=== PATIENT | female | born 1995 ===

== ENCOUNTER 2017-07-12 15:42 | Emergency (ER) | payer SELFPAY ==
[2017-07-12 15:47] VITALS: BP 116/60
--- NOTE | 2017-07-12 18:20 | Emergency Department Report ---
ED Fever HPI - General Chief Complaint: Fever Stated Complaint: FLU LIKE SYMPTOMS Time Seen by Provider: 07/12/17 17:39 - History of Present Illness Initial Comments: The patient is a 21-year-old [place]ag[place] female is presenting with congestion and fever body aches and several days of nausea vomiting. Patient has no dizziness upon standing. Patient also denies productive cough and diarrhea chest pain or abdominal pain this time. Patient has been febrile and feels as though she has to flu ED Review of Systems ROS: Stated complaint: FLU LIKE SYMPTOMS Other details as noted in HPI Comment: All other systems reviewed and negative ED Past Medical Hx - Past Medical History Previous Medical History?: No - Surgical History Past Surgical History?: Yes Additional Surgical History: C/S, wisdom teeth - Social History Smoking Status: Current Every Day Smoker Substance Use Type: None, Alcohol - Medications Home Medications: Home Medications Medication Instructions Recorded Confirmed Last Taken Type HYDROcodone/APAP 5-325 [[place] 1 each PO Q6HR PRN #12 tablet 07/12/17 Unknown Rx 5/325] Ondansetron [Zofran Odt] 4 mg PO Q8HR #10 tab.rapdis 07/12/17 Unknown Rx predniSONE [Deltasone] 20 mg PO QDAY #5 tab 07/12/17 Unknown Rx ED Physical Exam - General Limitations: No Limitations General appearance: alert, in no apparent distress - Head Head exam: Present: atraumatic, normocephalic - Eye Eye exam: Present: normal appearance - ENT ENT exam: Present: mucous membranes moist - Neck Neck exam: Present: normal inspection - Respiratory Respiratory exam: Present: normal lung sounds bilaterally. Absent: respiratory distress - Cardiovascular Cardiovascular Exam: Present: regular rate, normal rhythm. Absent: systolic murmur, diastolic murmur, rubs, gallop - GI/Abdominal GI/Abdominal exam: Present: soft, normal bowel sounds - Extremities Exam Extremities exam: Present: normal inspection - Back Exam Back exam: Present: normal inspection - Neurological Exam Neurological exam: Present: alert, oriented X3 - Psychiatric Psychiatric exam: Present: normal affect, normal mood - Skin Skin exam: Present: warm, dry, intact, normal color. Absent: rash ED Course Vital Signs 07/12/17 15:45 Temperature 100.5 F H Pulse Rate 110 H Respiratory 18 Rate Blood Pressure 116/60 O2 Sat by Pulse 97 Oximetry Critical care attestation.: If time is entered above; I have spent that time in minutes in the direct care of this critically ill patient, excluding procedure time. ED Disposition Clinical Impression: Flu-like symptoms Disposition: TO HOME OR SELFCARE Is pt being admited?: No Does the pt Need Aspirin: No Condition: Stable Instructions: Influenza (ED) Prescriptions: HYDROcodone/APAP 5-325 [[place] 5/325] 1 each PO Q6HR PRN #12 tablet PRN Reason: Pain Ondansetron [Zofran Odt] 4 mg PO Q8HR #10 tab.rapdis predniSONE [Deltasone] 20 mg PO QDAY #5 tab
== END 2017-07-12 18:27 | disposition home or self-care (01) ==
LOC: ED 15:42
DX: M79.1 Myalgia (principal); R09.81 Nasal congestion; R50.9 Fever, unspecified; R11.2 Nausea with vomiting, unspecified; F17.200 Nicotine dependence, unspecified, uncomplicated; Z88.2 Allergy status to sulfonamides
CPT/HCPCS: 99282

== ENCOUNTER 2021-05-27 20:25 | Emergency (ER) | payer OTHER ==
[2021-05-27 20:29] VITALS: BP 110/77
[2021-05-27] MEDS ORDERED: ONDANSETRON 4 MG ODT TAB PO ONE (21:50)
[2021-05-27] MEDS ORDERED: ACETAMINOPHEN 500 MG TAB PO ONE (21:50)
[2021-05-27] MEDS ORDERED: IBUPROFEN 600 MG TAB PO ONE (21:50)
[2021-05-27 22:51] LABS: Bacteria,Urine 1+ /HPF (Negative); Bilirubin,Urine NEG (Negative); Blood,Urine SM (Negative); Color,Urine Yellow (Yellow); Mucus,Urine 2+ /HPF
[2021-05-27 22:56] LABS: HCG Qualitative,Urine Negative (Negative)
--- NOTE | 2021-05-27 23:16 | Emergency Department Report ---
- General Chief Complaint: Fever Stated Complaint: BODYACHES AND FEVER Source: patient Mode of arrival: Ambulatory Limitations: No Limitations - History of Present Illness Initial Comments: Patient is a 25-year-old female with no past medical history presented to the ED with complaint of acute onset persistent diffuse body aches and pains, nasal and sinus congestion, sore throat, persistent headache and subjective fever and chills and lack of appetite for the last 2 days, worse in the last 12 hours. Patient states that she has been taking [id number] medications with no relief. Patient denies dizziness, syncope, nausea and vomiting, diarrhea, chest pain, shortness of breath, abdominal pain, dysuria, urinary frequency and urgency or vaginal discharge and low back pain. MD Complaint: fever, cough, sore throat, rhinorrhea, nasal congestion, sinus pain, other (diffuse body aches and pains) -: Sudden, days(s) (2) Severity: severe Severity scale (0 -10): 8 Quality: sharp, aching Consistency: constant Improves With: nothing Worsens With: nothing Context: sick contacts Associated Symptoms: fever, chills, myalgias, headache, rhinorrhea, nasal congestion, sore throat, cough. denies: diaphoresis, stiff neck, chest pain, abdominal pain, nausea, vomiting, diarrhea, dysuria, rash, confusion, right sweats, weight loss, epistaxis, hoarseness, ear pain Treatments Prior to Arrival: "cold medicine" - Related Data Previous Rx's Medication Instructions Recorded Last Taken Type HYDROcodone/APAP 5-325 [[place] 1 each PO Q6HR PRN #12 tablet 07/12/17 Unknown Rx 5/325] Ondansetron [Zofran Odt] 4 mg PO Q8HR #10 tab.rapdis 07/12/17 Unknown Rx predniSONE [Deltasone] 20 mg PO QDAY #5 tab 07/12/17 Unknown Rx Acetaminophen [Tylenol] 500 mg PO Q6HR PRN #30 tablet 05/27/21 Unknown Rx Azithromycin [Zithromax Z-NASRIN] 250 mg PO DAILY #6 tablet 05/27/21 Unknown Rx Benzonatate [Tessalon Perles] 100 mg PO Q8HR #30 capsule 05/27/21 Unknown Rx Cetirizine HCl [Zyrtec 10mg tab] 10 mg PO DAILY #30 tablet 05/27/21 Unknown Rx Ibuprofen [Motrin] 600 mg PO Q8H PRN #30 tablet 05/27/21 Unknown Rx Allergies Allergy/AdvReac Type Severity Reaction Status Date / Time sulfamethoxazole Allergy Rash Verified 07/12/17 15:45 [From Bactrim] trimethoprim [From Bactrim] Allergy Rash Verified 07/12/17 15:45 ED Review of Systems ROS: Stated complaint: BODYACHES AND FEVER Other details as noted in HPI Constitutional: chills, fever, malaise Eyes: denies: eye pain, eye discharge, vision change ENT: throat pain, congestion, other (Nasal and sinus pressure). denies: ear pain Respiratory: cough. denies: shortness of breath, wheezing Cardiovascular: denies: chest pain, palpitations Endocrine: no symptoms reported Gastrointestinal: denies: abdominal pain, nausea, vomiting, diarrhea Genitourinary: denies: urgency, dysuria, discharge Musculoskeletal: arthralgia, myalgia. denies: back pain, joint swelling Skin: denies: rash, lesions Neurological: headache. denies: weakness, paresthesias Psychiatric: denies: anxiety, depression Hematological/Lymphatic: denies: easy bleeding, easy bruising ED Past Medical Hx - Past Medical History Previous Medical History?: No - Surgical History Past Surgical History?: No Additional Surgical History: C/S, wisdom teeth - Social History Smoking Status: Current Every Day Smoker Substance Use Type: None, Alcohol - Medications Home Medications: Home Medications Medication Instructions Recorded Confirmed Last Taken Type HYDROcodone/APAP 5-325 [[place] 1 each PO Q6HR PRN #12 tablet 07/12/17 Unknown Rx 5/325] Ondansetron [Zofran Odt] 4 mg PO Q8HR #10 tab.rapdis 07/12/17 Unknown Rx predniSONE [Deltasone] 20 mg PO QDAY #5 tab 07/12/17 Unknown Rx Acetaminophen [Tylenol] 500 mg PO Q6HR PRN #30 tablet 05/27/21 Unknown Rx Azithromycin [Zithromax Z-NASRIN] 250 mg PO DAILY #6 tablet 05/27/21 Unknown Rx Benzonatate [Tessalon Perles] 100 mg PO Q8HR #30 capsule 05/27/21 Unknown Rx Cetirizine HCl [Zyrtec 10mg tab] 10 mg PO DAILY #30 tablet 05/27/21 Unknown Rx Ibuprofen [Motrin] 600 mg PO Q8H PRN #30 tablet 05/27/21 Unknown Rx ED Physical Exam - General Limitations: No Limitations General appearance: alert, in no apparent distress - Head Head exam: Present: atraumatic, normocephalic, normal inspection - Eye Eye exam: Present: normal appearance, PERRL, EOMI Pupils: Present: normal accommodation - ENT ENT exam: Present: mucous membranes moist, TM's normal bilaterally, normal external ear exam, other (Palpable frontal sinus tenderness; grossly congested nasal passages; mildly erythematous oropharynx) - Neck Neck exam: Present: normal inspection, full ROM. Absent: tenderness, lymphadenopathy - Respiratory Respiratory exam: Present: normal lung sounds bilaterally. Absent: respiratory distress, wheezes, rales, rhonchi, chest wall tenderness, accessory muscle use, decreased breath sounds - Cardiovascular Cardiovascular Exam: Present: normal rhythm, tachycardia, normal heart sounds. Absent: systolic murmur, diastolic murmur, rubs, gallop - GI/Abdominal GI/Abdominal exam: Present: soft, normal bowel sounds. Absent: distended, tenderness, guarding, rebound, hyperactive bowel sounds, hypoactive bowel sounds, organomegaly, mass - Extremities Exam Extremities exam: Present: normal inspection, full ROM, normal capillary refill - Back Exam Back exam: Present: normal inspection, full ROM. Absent: tenderness, CVA tenderness (R), CVA tenderness (L), muscle spasm, paraspinal tenderness, vertebral tenderness - Neurological Exam Neurological exam: Present: alert, oriented X3, CN II-XII intact, normal gait, reflexes normal - Psychiatric Psychiatric exam: Present: normal affect, normal mood, anxious - Skin Skin exam: Present: warm, dry, intact, normal color. Absent: rash ED Course Vital Signs 05/27/21 20:28 Pulse Rate 102 H Blood Pressure 110/77 O2 Sat by Pulse 100 Oximetry ED Medical Decision Making - Medical Decision Making This is a 25-year-old female with no past medical history presented to the ED with complaint of acute onset persistent diffuse body aches and pains, nasal and sinus congestion, sore throat, persistent headache and subjective fever and chills and lack of appetite for the last 2 days, worse in the last 12 hours. Patient states that she has been taking [id number] medications w ith no relief. In the ED, patient is alert and oriented x3 and is not in any distress. Patient is afebrile but tachycardic in triage. Patient was treated for pain in the ED and was given antiemetics and oral steroids. Rapid influenza test was negative. And urinalysis is unremarkable. On reevaluation, patient felt better, pain is well controlled medication, tachycardia also resolved prior to being discharged home. Patient will discharge home on medications and advised to follow-up with her primary care physician in 7 to 10 days for reevaluation. Patient was also advised and encouraged to get a COVID-19 diagnostic tests in any of the outpatient facilities in the community and if positive self quarantine for 5 days per recommendation of the CDC. Patient is advised return to the ED immediately if symptoms get worse. - Differential Diagnosis URI; sinusitis; strep pharyngitis; pneumonia; bronchitis; influenza Critical care attestation.: If time is entered above; I have spent that time in minutes in the direct care of this critically ill patient, excluding procedure time. ED Disposition Clinical Impression: Acute upper respiratory infection Acute frontal sinusitis Qualifiers: Recurrence: non-recurrent Qualified Code(s): J01.10 - Acute frontal sinusitis, unspecified Acute pharyngitis Qualifiers: Pharyngitis/tonsillitis etiology: unspecified etiology Qualified Code(s): J02.9 - Acute pharyngitis, unspecified Acute bronchitis Qualifiers: Bronchitis organism: unspecified organism Qualified Code(s): J20.9 - Acute bronchitis, unspecified Disposition: 01 HOME / SELF CARE / HOMELESS Is pt being admited?: No Does the pt Need Aspirin: No Condition: Stable Instructions: Acute Bronchitis (ED), Sinusitis, Adult, [id number], Cough, Adult, [id number], Upper Respiratory Infection, Adult, [id number], Pharyngitis, [id number] Additional Instructions: Rapid influenza test was negative. Urinalysis is unremarkable. Your symptoms are likely due to upper respiratory infection, sinusitis or bronchitis. Therefore take medications with food, drink plenty of fluids and follow-up with your primary care physician in 7 to 10 days for reevaluation. Consider getting tested for COVID-19 viral infection in any of the outpatient facilities. Return to the ED immediately if symptoms get worse. Prescriptions: Acetaminophen [Tylenol] 500 mg PO Q6HR PRN #30 tablet PRN Reason: pain or fever Ibuprofen [Motrin] 600 mg PO Q8H PRN #30 tablet PRN Reason: Pain Benzonatate [Tessalon Perles] 100 mg PO Q8HR #30 capsule Azithromycin [Zithromax Z-NASRIN] 250 mg PO DAILY #6 tablet Cetirizine HCl [Zyrtec 10mg tab] 10 mg PO DAILY #30 tablet Referrals: [facility] [Provider Group] - 3-5 Days Forms: Work/School Release Form(ED) Time of Disposition: 23:16 Print Language: TAMAZIGHT
[2021-05-28] MEDS ORDERED: IBUPROFEN 800 MG TAB ONE (00:38)
[2021-05-28] MEDS ORDERED: ONDANSETRON 4 MG ODT TAB ONE (00:38)
[2021-05-28] MEDS ORDERED: ACETAMINOPHEN 500 MG TAB ONE (00:38)
== END 2021-05-28 00:30 | disposition home or self-care (01) ==
LOC: ED 20:25
DX: J20.9 Acute bronchitis, unspecified (principal); F17.200 Nicotine dependence, unspecified, uncomplicated; J06.9 Acute upper respiratory infection, unspecified; J01.10 Acute frontal sinusitis, unspecified
CPT/HCPCS: 81001; 81025; 87400; 99283; J3490; Q0162